=== PATIENT | female | born 1970 | race Two or more races ===

== ENCOUNTER 2018-10-29 10:41 | Inpatient (IN) | payer MEDICAID ==
[2018-10-29 12:09] LABS: ADD MAN DIFF? NO
[2018-10-29 12:11] LABS: BASOPHILS % 0.3 % (0.0-2.0); EOSINOPHILS # 0.2 10^3/ul (0.0-0.5); EOSINOPHILS % 1.7 % (0.0-7.0); HEMATOCRIT 35.3 % (37.0-47.0); HEMOGLOBIN 12.5 g/dl (12.0-16.0); LYMPHOCYTES # 1.3 10^3/ul (0.8-2.9); LYMPHOCYTES % 11.2 % (15.0-51.0); MEAN CORPUSCULAR HEMOGLOBIN 30.9 pg (29.0-33.0); MEAN CORPUSCULAR HGB CONC 35.4 g/dl (32.0-37.0); MEAN CORPUSCULAR VOLUME 87.2 fl (82.0-101.0); MEAN PLATELET VOLUME 9.1 fl (7.4-10.4); MONOCYTE # 0.6 10^3/ul (0.3-0.9); MONOCYTES % 5.4 % (0.0-11.0); NEUTROPHIL # 9.3 10^3/ul (1.6-7.5); PLATELET COUNT 257 10^3/UL (140-415); RED BLOOD COUNT 4.05 10^6/ul (4.20-5.40); RED CELL DISTRIBUTION WIDTH 12.3 % (11.5-14.5)
[2018-10-29 12:11] LABS: WHITE BLOOD COUNT 11.5 10^3/ul (4.8-10.8)
[2018-10-29 12:36] LABS: ALANINE AMINOTRANSFERASE 21 IU/L (13-69); ALBUMIN 3.5 g/dl (3.3-4.9); ALKALINE PHOSPHATASE 116 IU/L (42-121); ANION GAP 8 (5-13); ASPARTATE AMINO TRANSFERASE 26 IU/L (15-46); BILIRUBIN,INDIRECT 0.3 mg/dl (0-1.1); BILIRUBIN,TOTAL 0.3 mg/dl (0.2-1.3); BLOOD UREA NITROGEN 7 mg/dl (7-20); CALCIUM 8.6 mg/dl (8.4-10.2); CARBON DIOXIDE 23 mmol/L (21-31); CHLORIDE 105 mmol/L (97-110); CREATININE 0.42 mg/dl (0.44-1.00); Estimated GFR > 60 mL/min (>60); POTASSIUM 3.5 mmol/L (3.5-5.1); SODIUM 136 mmol/L (135-144)
[2018-10-29 12:37] LABS: HEMOGLOBIN A1C 5.7 % (0-5.9)
[2018-10-29 12:40] LABS: GLUCOSE 47 mg/dl (70-220)
[2018-10-29] MEDS ORDERED: DEXTROSE 50% 50 ML SYRINGE (12:58)
[2018-10-29] MEDS: DEXTROSE 5%-LR 1,000 ML IV (13:15)
[2018-10-29] MEDS: LACTATED RINGER'S 250 ML IV (13:42)
[2018-10-29] MEDS: DEXTROSE 50% 50 ML SYRINGE IV (13:42)
[2018-10-29 16:23] LABS: INR 0.83; PROTIME 11.5 Sec (11.9-14.9); PT RATIO 0.9
[2018-10-29 16:24] LABS: PARTIAL THROMBOPLASTIN TIME 27.8 Sec (23.0-35.0)
[2018-10-29 16:30] LABS: URIC ACID 4.2 mg/dl (3.1-7.9)
[2018-10-29] MEDS: NIFEdipine (XL) 30 MG TAB PO (18:06)
[2018-10-29 19:00] LABS: ADD UMIC NO; UR ASCORBIC ACID NEGATIVE (NEGATIVE); UR BILIRUBIN (Dip) NEGATIVE (NEGATIVE); UR BLOOD (Dip) NEGATIVE (NEGATIVE); UR CLARITY CLEAR (CLEAR); UR COLOR COLORLESS (YELLOW); UR GLUCOSE (Dip) 1+ mg/dL (NEGATIVE); UR KETONES (Dip) NEGATIVE (NEGATIVE); UR LEUKOCYTE ESTERASE (Dip) NEGATIVE Leu/ul (NEGATIVE); UR NITRITE (Dip) NEGATIVE (NEGATIVE); UR SPECIFIC GRAVITY (Dip) 1.003 (1.003-1.030); UR TOTAL PROTEIN (Dip) NEGATIVE (NEGATIVE); UR UROBILINOGEN (Dip) NEGATIVE (NEGATIVE)
[2018-10-29] MEDS: LACTATED RINGER'S 1,000 ML IV ×2 (19:28→22:00)
[2018-10-29] MEDS: MAGNESIUM SULFATE 4 GM/100 ML 100 ML IV (21:10)
[2018-10-29] MEDS: MAGNESIUM SULFATE 20 GM/500 ML 500 ML IV (21:42)
[2018-10-30] MEDS: DEXTROSE 5%-0.45% NACL 1,000 ML IV (00:22)
[2018-10-30] MEDS ORDERED: hydrALAzine 20 MG INJ IV (01:00)
[2018-10-30] MEDS: hydrALAzine 20 MG INJ IV (01:16)
[2018-10-30] MEDS: ONDANSETRON 4 MG INJ IV ×3 (03:13→17:57)
[2018-10-30 05:40] LABS: ADD MAN DIFF? NO
[2018-10-30 05:49] LABS: WHITE BLOOD COUNT 10.9 10^3/ul (4.8-10.8)
[2018-10-30 05:49] LABS: BASOPHILS % 0.4 % (0.0-2.0); EOSINOPHILS # 0.2 10^3/ul (0.0-0.5); HEMATOCRIT 35.3 % (37.0-47.0); HEMOGLOBIN 12.4 g/dl (12.0-16.0); LYMPHOCYTES # 1.5 10^3/ul (0.8-2.9); LYMPHOCYTES % 13.3 % (15.0-51.0); MEAN CORPUSCULAR HEMOGLOBIN 30.8 pg (29.0-33.0); MEAN CORPUSCULAR HGB CONC 35.1 g/dl (32.0-37.0); MEAN CORPUSCULAR VOLUME 87.8 fl (82.0-101.0); MEAN PLATELET VOLUME 9.2 fl (7.4-10.4); MONOCYTE # 0.5 10^3/ul (0.3-0.9); MONOCYTES % 4.4 % (0.0-11.0); NEUTROPHIL # 8.7 10^3/ul (1.6-7.5); NEUTROPHILS % 79.4 % (39.0-77.0); PLATELET COUNT 260 10^3/UL (140-415); RED BLOOD COUNT 4.02 10^6/ul (4.20-5.40); RED CELL DISTRIBUTION WIDTH 12.6 % (11.5-14.5)
[2018-10-30 06:09] LABS: ALANINE AMINOTRANSFERASE 28 IU/L (13-69); ALBUMIN 3.2 g/dl (3.3-4.9); ALBUMIN/GLOBULIN RATIO 0.94; ALKALINE PHOSPHATASE 132 IU/L (42-121); ANION GAP 11 (5-13); ASPARTATE AMINO TRANSFERASE 30 IU/L (15-46); BILIRUBIN,INDIRECT 0.4 mg/dl (0-1.1); BILIRUBIN,TOTAL 0.4 mg/dl (0.2-1.3); BLOOD UREA NITROGEN 6 mg/dl (7-20); CALCIUM 7.2 mg/dl (8.4-10.2); CARBON DIOXIDE 19 mmol/L (21-31); CHLORIDE 102 mmol/L (97-110); CREATININE 0.46 mg/dl (0.44-1.00); Estimated GFR > 60 mL/min (>60); GLUCOSE 126 mg/dl (70-220); POTASSIUM 3.6 mmol/L (3.5-5.1); SODIUM 132 mmol/L (135-144); TOTAL PROTEIN 6.6 g/dl (6.1-8.1)
[2018-10-30] MEDS: MAGNESIUM SULFATE 20 GM/500 ML 500 ML IV (06:41)
[2018-10-30 06:52] LABS: MAGNESIUM 6.1 mg/dl (1.7-2.5)
[2018-10-30] MEDS: LABETALOL 200 MG TAB PO ×2 (08:20→21:44)
[2018-10-30] MEDS ORDERED: NIFEdipine (XL) 30 MG TAB PO (09:00)
[2018-10-30] MEDS: POTASSIUM CHLORIDE 20 MEQ in LACTATED RINGER'S 1,000 ML IV (09:31)
[2018-10-30] MEDS: ACCU-CHEK XX ×3 (09:35→20:55)
[2018-10-30 10:04] LABS: HEMOGLOBIN A1C 5.6 % (0-5.9)
[2018-10-30] MEDS: ACETAMINOPHEN 325 MG TAB PO (10:07)
[2018-10-30] MEDS: NIFEdipine (XL) 30 MG TAB PO (11:10)
[2018-10-30 12:24] LABS: HEPATITIS C VIRAL ANTIBODY NEGATIVE (NEGATIVE)
[2018-10-30] MEDS: INSULIN ASPART [NOVOLOG] 3 ML PEN SC ×2 (13:50→18:50)
[2018-10-30] MEDS: LACTATED RINGER'S 1,000 ML IV ×2 (15:30→16:29)
[2018-10-30 16:21] LABS: RAPID PLASMA REAGIN NONREACTIVE (NR)
[2018-10-30] MEDS: NPH, HUMAN INSULIN ISOPHANE 3ML VIAL SC (21:32)
[2018-10-30] MEDS: PANTOPRAZOLE 40 MG INJ IV (21:36)
[2018-10-31] MEDS: ACCU-CHEK XX ×4 (02:13→20:23)
[2018-10-31] MEDS: LACTATED RINGER'S 1,000 ML IV ×2 (03:50→05:50)
[2018-10-31] MEDS: POTASSIUM CHLORIDE 20 MEQ in LACTATED RINGER'S 1,000 ML IV (06:12)
[2018-10-31 06:46] LABS: COLLECTION PERIOD 24 hrs
[2018-10-31] MEDS: PANTOPRAZOLE 40 MG INJ IV (06:48)
[2018-10-31 08:01] LABS: COLLECTION PERIOD 24 hrs; SCRET 0.46 mg/dl (0.44-1.00); VOLUME 1625 ml/24hrs
[2018-10-31] MEDS: INSULIN ASPART [NOVOLOG] 3 ML PEN SC ×3 (08:02→19:18)
[2018-10-31] MEDS: NPH, HUMAN INSULIN ISOPHANE 3ML VIAL SC ×2 (08:03→22:42)
[2018-10-31 08:14] LABS: VOLUME 1625 mls
[2018-10-31 10:14] LABS: ADD MAN DIFF? NO
[2018-10-31] MEDS: LABETALOL 200 MG TAB PO ×2 (10:14→21:21)
[2018-10-31] MEDS: NIFEdipine (XL) 30 MG TAB PO (10:14)
[2018-10-31 10:18] LABS: BASOPHILS % 0.5 % (0.0-2.0); EOSINOPHILS # 0.5 10^3/ul (0.0-0.5); EOSINOPHILS % 6.6 % (0.0-7.0); HEMATOCRIT 31.9 % (37.0-47.0); HEMOGLOBIN 11.1 g/dl (12.0-16.0); LYMPHOCYTES # 1.9 10^3/ul (0.8-2.9); LYMPHOCYTES % 23.6 % (15.0-51.0); MEAN CORPUSCULAR HEMOGLOBIN 31.4 pg (29.0-33.0); MEAN CORPUSCULAR HGB CONC 34.8 g/dl (32.0-37.0); MEAN CORPUSCULAR VOLUME 90.1 fl (82.0-101.0); MEAN PLATELET VOLUME 8.8 fl (7.4-10.4); MONOCYTE # 0.5 10^3/ul (0.3-0.9); MONOCYTES % 6.8 % (0.0-11.0); NEUTROPHIL # 4.9 10^3/ul (1.6-7.5); NEUTROPHILS % 62.1 % (39.0-77.0); PLATELET COUNT 220 10^3/UL (140-415); RED BLOOD COUNT 3.54 10^6/ul (4.20-5.40); RED CELL DISTRIBUTION WIDTH 12.5 % (11.5-14.5)
[2018-10-31 10:18] LABS: WHITE BLOOD COUNT 7.9 10^3/ul (4.8-10.8)
[2018-10-31 10:37] LABS: URIC ACID 4.6 mg/dl (3.1-7.9)
[2018-10-31 10:38] LABS: ALANINE AMINOTRANSFERASE 18 IU/L (13-69); ALBUMIN/GLOBULIN RATIO 0.96; ALKALINE PHOSPHATASE 104 IU/L (42-121); ANION GAP 7 (5-13); ASPARTATE AMINO TRANSFERASE 28 IU/L (15-46); BILIRUBIN,INDIRECT 0.4 mg/dl (0-1.1); BILIRUBIN,TOTAL 0.4 mg/dl (0.2-1.3); BLOOD UREA NITROGEN 9 mg/dl (7-20); CARBON DIOXIDE 22 mmol/L (21-31); CHLORIDE 105 mmol/L (97-110); CREATININE 0.53 mg/dl (0.44-1.00); Estimated GFR > 60 mL/min (>60); GLUCOSE 89 mg/dl (70-220); POTASSIUM 3.8 mmol/L (3.5-5.1); SODIUM 134 mmol/L (135-144); TOTAL PROTEIN 6.1 g/dl (6.1-8.1)
[2018-10-31 11:36] LABS: CREATININE CLEARANCE 116.2 mls/min (84.0-162.0); CREATININE,URINE RANDOM 47.36 mg/dl (20-320)
[2018-10-31] MEDS: AMOXICILLIN 250 MG CAP PO ×2 (13:14→22:43)
[2018-10-31] MEDS: CALCIUM CARBONATE 500 MG CHEW TAB PO (20:24)
[2018-11-01] MEDS: ACCU-CHEK XX (02:00)
[2018-11-01] MEDS: AMOXICILLIN 250 MG CAP PO ×3 (05:58→22:00)
[2018-11-01] MEDS ORDERED: CARBOPROST 250 MCG INJ (07:00)
[2018-11-01] MEDS: PANTOPRAZOLE 40 MG INJ IV (07:47)
[2018-11-01] MEDS: NPH, HUMAN INSULIN ISOPHANE 3ML VIAL SC ×2 (08:00→20:00)
[2018-11-01] MEDS: FERROUS SULFATE (EC) 325 MG TAB PO (09:00)
[2018-11-01] MEDS: LABETALOL 200 MG TAB PO ×3 (09:00→21:44)
[2018-11-01] MEDS: PRENATAL VITAMIN PO (09:00)
[2018-11-01] MEDS ORDERED: GLUCOSE GEL 15 GRAM TUBE ×2 (09:43→09:47)
[2018-11-01] MEDS: DEXTROSE 50% 50 ML SYRINGE IV (09:50)
[2018-11-01] MEDS ORDERED: GLUCOSE GEL 15 GRAM TUBE PO ×2 (10:00)
[2018-11-01] MEDS ORDERED: DEXTROSE 50% 50 ML SYRINGE IV ×2 (10:00)
[2018-11-01] MEDS ORDERED: GLUCOSE GEL 15 GRAM TUBE BUCCAL (10:00)
[2018-11-01] MEDS ORDERED: GLUCAGON 1 MG INJ IM (10:00)
[2018-11-01] MEDS: DEXTROSE 5%-LR 1,000 ML IV ×2 (10:19→19:27)
[2018-11-01] MEDS: LACTATED RINGER'S 1,000 ML IV ×2 (10:38→15:49)
[2018-11-01] MEDS: NIFEdipine (XL) 30 MG TAB PO (11:20)
[2018-11-01] MEDS ORDERED: OXYTOCIN 30 UNITS/LR 500 ML IV ×4 (12:00→17:00)
[2018-11-01] MEDS ORDERED: CARBOPROST 250 MCG INJ IM ×2 (12:00→17:00)
[2018-11-01] MEDS ORDERED: MISOPROSTOL 200 MCG TAB PR ×2 (12:00→17:00)
[2018-11-01] MEDS ORDERED: METHYLERGONOVINE 0.2 MG INJ IM ×2 (12:00→17:00)
[2018-11-01 12:04] LABS: ADD MAN DIFF? NO
[2018-11-01 12:11] LABS: BASOPHIL # 0.1 10^3/ul (0.0-0.1); BASOPHILS % 0.8 % (0.0-2.0); EOSINOPHILS # 0.8 10^3/ul (0.0-0.5); EOSINOPHILS % 10.3 % (0.0-7.0); HEMATOCRIT 33.1 % (37.0-47.0); HEMOGLOBIN 11.1 g/dl (12.0-16.0); LYMPHOCYTES # 2.2 10^3/ul (0.8-2.9); MEAN CORPUSCULAR HGB CONC 33.5 g/dl (32.0-37.0); MEAN CORPUSCULAR VOLUME 92.5 fl (82.0-101.0); MEAN PLATELET VOLUME 9.7 fl (7.4-10.4); MONOCYTE # 0.6 10^3/ul (0.3-0.9); MONOCYTES % 7.8 % (0.0-11.0); NEUTROPHIL # 3.9 10^3/ul (1.6-7.5); NEUTROPHILS % 51.8 % (39.0-77.0); PLATELET COUNT 243 10^3/UL (140-415); RED BLOOD COUNT 3.58 10^6/ul (4.20-5.40); RED CELL DISTRIBUTION WIDTH 12.7 % (11.5-14.5)
[2018-11-01 12:11] LABS: WHITE BLOOD COUNT 7.4 10^3/ul (4.8-10.8)
[2018-11-01 12:18] LABS: INR 0.83; PROTIME 11.5 Sec (11.9-14.9); PT RATIO 0.9
[2018-11-01 12:19] LABS: PARTIAL THROMBOPLASTIN TIME 30.5 Sec (23.0-35.0)
[2018-11-01 13:32] LABS: ANION GAP 7 (5-13); BLOOD UREA NITROGEN 11 mg/dl (7-20); CALCIUM 8.2 mg/dl (8.4-10.2); CARBON DIOXIDE 23 mmol/L (21-31); CHLORIDE 105 mmol/L (97-110); CREATININE 0.47 mg/dl (0.44-1.00); Estimated GFR > 60 mL/min (>60); GLUCOSE 188 mg/dl (70-220); POTASSIUM 4.2 mmol/L (3.5-5.1); SODIUM 135 mmol/L (135-144)
[2018-11-01] MEDS: DEXTROSE 10% 1,000 ML IV ×2 (13:53→23:30)
[2018-11-01 14:05] LABS: HEPATITIS B SURFACE ANTIGEN NEGATIVE (NEGATIVE)
[2018-11-01] MEDS: FAMOTIDINE 20 MG INJ IV (15:50)
[2018-11-01] MEDS: METOCLOPRAMIDE 10 MG INJ IV (15:50)
[2018-11-01] MEDS: CITRIC ACID/NA CITRATE 30 ML CUP PO (15:50)
[2018-11-01 16:36] LABS: IRON 73 ug/dl (35-150)
[2018-11-01 16:46] LABS: % IRON SATURATION 21 % SAT (22-52); TOTAL IRON BINDING CAPACITY 352 ug/dl (241-421)
[2018-11-01] MEDS: CEFAZOLIN 2 GM/50 ML (PMX) 50 ML IVPB (17:20)
[2018-11-01 17:21] LABS: RAPID PLASMA REAGIN NONREACTIVE (NR)
[2018-11-01] MEDS ORDERED: morphine SULFATE/PF (10 MG/10 ML) INJ (18:02)
[2018-11-01] MEDS ORDERED: EPHEDrine 25 MG/5 ML SYG (18:20)
[2018-11-01] MEDS ORDERED: PROCHLORPERAZINE 10 MG INJ IV (18:30)
[2018-11-01] MEDS ORDERED: FENTAnyl 50 MCG/ML VIAL IV ×6 (18:30→20:00)
[2018-11-01] MEDS ORDERED: HYDROmorphONE 1 MG/5 ML IV SYRINGE IV ×3 (18:30)
[2018-11-01] MEDS ORDERED: ONDANSETRON 4 MG INJ IV ×3 (18:30→20:00)
[2018-11-01] MEDS ORDERED: LABETALOL HCL 20MG INJ IV ×2 (18:30→20:00)
[2018-11-01] MEDS ORDERED: KETOROLAC 30 MG INJ IV ×3 (18:30→20:00)
[2018-11-01] MEDS ORDERED: MEPERIDINE 25 MG INJ IV ×2 (18:30→20:00)
[2018-11-01] MEDS ORDERED: hydrALAzine 20 MG INJ IV (18:30)
[2018-11-01] MEDS ORDERED: EPHEDrine SULFATE 50 MG/5 ML SYG IV ×2 (18:30→20:00)
[2018-11-01] MEDS ORDERED: DIPHENHYDRAMINE 50 MG INJ IV ×3 (18:30→20:00)
[2018-11-01] MEDS ORDERED: ZOLPIDEM 5 MG TAB PO (20:00)
[2018-11-01] MEDS ORDERED: NALOXONE (0.4 MG/ML) INJ IV (20:00)
[2018-11-01] MEDS ORDERED: HYDROmorphONE 0.5 MG/0.5 ML SYG IV ×4 (20:00)
[2018-11-01] MEDS: hydrALAzine 20 MG INJ IV (20:49)
[2018-11-01] MEDS: HYDROmorphONE 0.5 MG/0.5 ML SYG IV (21:27)
[2018-11-02] MEDS: ACCU-CHEK XX ×5 (02:00→20:44)
[2018-11-02] MEDS ORDERED: OXYTOCIN 30 UNITS/LR 500 ML IV ×2 (02:24→02:30)
[2018-11-02] MEDS ORDERED: CEFAZOLIN 2 GM/50 ML (PMX) 50 ML IVPB (02:30)
[2018-11-02] MEDS ORDERED: IBUPROFEN 600 MG TAB PO (02:30)
[2018-11-02] MEDS ORDERED: METHYLERGONOVINE 0.2 MG INJ IM (02:30)
[2018-11-02] MEDS ORDERED: MISOPROSTOL 200 MCG TAB PR (02:30)
[2018-11-02] MEDS ORDERED: NACL 0.9% 3 ML SYG IV (02:30)
[2018-11-02] MEDS ORDERED: CARBOPROST 250 MCG INJ IM (02:30)
[2018-11-02] MEDS ORDERED: SENNA/DOCUSATE NA (8.6MG/50MG) TAB PO (02:30)
[2018-11-02] MEDS: DEXTROSE 5%-LR 1,000 ML IV (02:50)
[2018-11-02] MEDS: AMOXICILLIN 250 MG CAP PO ×2 (05:21→14:03)
[2018-11-02] MEDS: PANTOPRAZOLE 40 MG INJ IV (05:21)
[2018-11-02 07:58] LABS: ADD MAN DIFF? NO
[2018-11-02 08:02] LABS: WHITE BLOOD COUNT 9.3 10^3/ul (4.8-10.8)
[2018-11-02 08:02] LABS: BASOPHILS % 0.2 % (0.0-2.0); EOSINOPHILS # 0.3 10^3/ul (0.0-0.5); EOSINOPHILS % 3.7 % (0.0-7.0); HEMATOCRIT 33.6 % (37.0-47.0); HEMOGLOBIN 11.5 g/dl (12.0-16.0); LYMPHOCYTES # 1.5 10^3/ul (0.8-2.9); LYMPHOCYTES % 16.3 % (15.0-51.0); MEAN CORPUSCULAR HEMOGLOBIN 30.8 pg (29.0-33.0); MEAN CORPUSCULAR HGB CONC 34.2 g/dl (32.0-37.0); MEAN CORPUSCULAR VOLUME 90.1 fl (82.0-101.0); MEAN PLATELET VOLUME 8.7 fl (7.4-10.4); MONOCYTE # 0.7 10^3/ul (0.3-0.9); MONOCYTES % 7.1 % (0.0-11.0); NEUTROPHIL # 6.7 10^3/ul (1.6-7.5); NEUTROPHILS % 72.4 % (39.0-77.0); PLATELET COUNT 222 10^3/UL (140-415); RED BLOOD COUNT 3.73 10^6/ul (4.20-5.40); RED CELL DISTRIBUTION WIDTH 12.4 % (11.5-14.5)
[2018-11-02] MEDS: FERROUS SULFATE (EC) 325 MG TAB PO (08:22)
[2018-11-02] MEDS: LABETALOL 200 MG TAB PO ×2 (08:22→20:44)
[2018-11-02] MEDS: NIFEdipine (XL) 30 MG TAB PO (08:22)
[2018-11-02] MEDS: PRENATAL VITAMIN PO (08:22)
[2018-11-02] MEDS: NPH, HUMAN INSULIN ISOPHANE 3ML VIAL SC (08:50)
[2018-11-02] MEDS: OXYCODONE/ACETAMINOPHEN (5/325) TAB PO ×2 (15:17→23:05)
[2018-11-02] MEDS: metFORMIN 500 MG TAB PO (17:52)
[2018-11-02] MEDS: INSULIN GLARGINE [LANTus] (100 UNITS/ML) SYG SC (20:46)
[2018-11-03] MEDS: AMOXICILLIN 250 MG CAP PO ×4 (00:18→20:56)
[2018-11-03] MEDS: ACCU-CHEK XX ×7 (01:00→21:00)
[2018-11-03] MEDS: PANTOPRAZOLE 40 MG INJ IV (06:27)
[2018-11-03] MEDS: FERROUS SULFATE (EC) 325 MG TAB PO (08:57)
[2018-11-03] MEDS: metFORMIN 500 MG TAB PO ×2 (08:57→18:26)
[2018-11-03] MEDS: LABETALOL 200 MG TAB PO ×2 (08:58→20:56)
[2018-11-03] MEDS: PRENATAL VITAMIN PO (09:00)
[2018-11-03] MEDS: NIFEdipine (XL) 30 MG TAB PO (09:01)
[2018-11-03] MEDS: OXYCODONE/ACETAMINOPHEN (5/325) TAB PO (11:23)
[2018-11-03] MEDS: MAGNESIUM HYDROXIDE 30ML CUP PO (15:52)
[2018-11-03] MEDS: INSULIN GLARGINE [LANTus] (100 UNITS/ML) SYG SC (20:58)
[2018-11-04] MEDS: ACCU-CHEK XX ×7 (01:00→21:25)
[2018-11-04] MEDS: AMOXICILLIN 250 MG CAP PO ×3 (05:33→21:47)
[2018-11-04] MEDS: PANTOPRAZOLE 40 MG INJ IV (05:34)
[2018-11-04] MEDS: PRENATAL VITAMIN PO (08:50)
[2018-11-04] MEDS: metFORMIN 500 MG TAB PO ×2 (08:50→18:07)
[2018-11-04] MEDS: FERROUS SULFATE (EC) 325 MG TAB PO (08:50)
[2018-11-04] MEDS: NIFEdipine (XL) 30 MG TAB PO (08:51)
[2018-11-04] MEDS: LABETALOL 200 MG TAB PO ×2 (08:52→21:17)
[2018-11-04] MEDS ORDERED: DIPHTH/TET/ACEL PERTUSS (ADULT) 0.5 ML VIAL IM* (09:00)
[2018-11-04] MEDS: INSULIN GLARGINE [LANTus] (100 UNITS/ML) SYG SC (21:19)
[2018-11-05] MEDS: ACCU-CHEK XX ×5 (02:00→13:00)
[2018-11-05] MEDS: AMOXICILLIN 250 MG CAP PO ×2 (05:33→14:20)
[2018-11-05] MEDS: PANTOPRAZOLE 40 MG INJ IV (05:33)
[2018-11-05] MEDS: metFORMIN 500 MG TAB PO (08:59)
[2018-11-05] MEDS: FERROUS SULFATE (EC) 325 MG TAB PO (09:00)
[2018-11-05] MEDS: PRENATAL VITAMIN PO (09:00)
[2018-11-05] MEDS: NIFEdipine (XL) 30 MG TAB PO (09:02)
[2018-11-05] MEDS: LABETALOL 200 MG TAB PO (09:02)
== END 2018-11-05 15:45 | disposition home or self-care (01) | DRG 788 ==
LOC: OBT 10:41 → L-D 10-30 12:42 → ICU 11-01 19:13 → PP1 11-02 16:54 → OBT 15:45 → L-D 15:57 → ICU 23:45
PROVIDERS: Obstetrics & Gynecology
PROC: 10D00Z1 Extraction of Products of Conception, Low, Open Approach (ICD-10-PCS; principal; 2018-11-01)
DX: O14.14 Severe pre-eclampsia complicating childbirth (principal); O24.02 Pre-existing type 1 diabetes mellitus, in childbirth; O99.214 Obesity complicating childbirth; E10.649 Type 1 diabetes mellitus with hypoglycemia without coma; O99.613 Diseases of the digestive system complicating pregnancy, third trimester; K21.9 Gastro-esophageal reflux disease without esophagitis; K06.1 Gingival enlargement; E66.01 Morbid (severe) obesity due to excess calories; O99.284 Endocrine, nutritional and metabolic diseases complicating childbirth; E83.51 Hypocalcemia; Z37.0 Single live birth; Z3A.33 33 weeks gestation of pregnancy
CPT/HCPCS: 76815; 76818; 80048; 80053; 81003; 82575; 82962; 83036; 83540; 83735; 84100; 84156; 84560; 85025; 85610; 85730; 86592; 86803; 86850; 86900; 86901; 87081; 87340; 88307; 96360; 96361; 99464